=== PATIENT | female | born 1965 | race Two or more races ===

== ENCOUNTER 2017-06-25 12:06 | Outpatient (CLI) | payer OTHER | END 2017-06-25 17:00 | disposition home or self-care (01) | LOC: MAMO-SONO 12:06 | DX: N60.11 Diffuse cystic mastopathy of right breast (principal); N60.12 Diffuse cystic mastopathy of left breast; N64.4 Mastodynia; Z12.31 Encounter for screening mammogram for malignant neoplasm of breast ==

== ENCOUNTER 2017-06-27 08:57 | Outpatient (CLI) | payer OTHER | END 2017-06-27 17:00 | disposition home or self-care (01) | LOC: SONOGRAMA 08:57 | DX: N84.0 Polyp of corpus uteri (principal) ==

== ENCOUNTER 2019-12-19 15:41 | Outpatient (CLI) | payer OTHER | END 2019-12-19 16:12 | disposition home or self-care (01) | LOC: RAD 15:41 | PROVIDERS: ATTEND Orthopaedic Surgery | DX: M25.551 Pain in right hip (principal); M25.561 Pain in right knee ==

== ENCOUNTER 2022-04-10 16:18 | Outpatient (CLI) | payer OTHER | END 2022-04-10 16:30 | disposition home or self-care (01) | LOC: RAD 16:18 | PROVIDERS: ATTEND Ophthalmology | DX: R91.8 Other nonspecific abnormal finding of lung field (principal) ==

== ENCOUNTER 2023-03-08 09:48 | Outpatient (CLI) | payer OTHER | END 2023-03-08 09:54 | disposition home or self-care (01) | LOC: MAMO-SONO 09:48 | PROVIDERS: ATTEND Obstetrics & Gynecology Maternal & Fetal Medicine | DX: Z12.31 Encounter for screening mammogram for malignant neoplasm of breast (principal); N64.4 Mastodynia; N60.11 Diffuse cystic mastopathy of right breast; N63.0 Unspecified lump in unspecified breast ==

== ENCOUNTER 2023-03-08 11:42 | Outpatient (CLI) | payer OTHER | END 2023-03-08 11:43 | disposition home or self-care (01) | LOC: NUCLEAR 11:42 | PROVIDERS: ATTEND Obstetrics & Gynecology Maternal & Fetal Medicine | DX: M81.0 Age-related osteoporosis without current pathological fracture (principal) ==

== ENCOUNTER 2024-11-19 06:00 | Day surgery (SDC) | payer OTHER ==
[2024-11-11 11:43] VITALS: BP 124/82
[~2024-11-19] VITALS: Ht 167.6 cm; Wt 81.6 kg
[~2024-11-19 06:00] MED LIST: ATORVASTATIN CA10 MG PO; MOUNJARO2.5 MG/0.5; WELLBUTRIN SR100 MG PO
[2024-11-19 15:14] VITALS: BP 121/71; O2SAT 100
== END 2024-11-19 13:45 | disposition home or self-care (01) ==
LOC: CIR.AMB 06:00
PROVIDERS: ATTEND Obstetrics & Gynecology Maternal & Fetal Medicine
DX: N84.0 Polyp of corpus uteri (principal); N80.03 Adenomyosis of the uterus